=== PATIENT | male | born 1960 | race Caucasian/White ===

== ENCOUNTER → 2019-10-14 | Outpatient (CLI) | payer OTHER ==
[2019-10-14 08:37] LABS: CREATININE 1.2 mg/dL (0.7-1.3)
== END ==
LOC: RAD 07:10
DX: M47.26 Other spondylosis with radiculopathy, lumbar region (principal); M47.818 Spondylosis without myelopathy or radiculopathy, sacral and sacrococcygeal region; M48.07 Spinal stenosis, lumbosacral region

== ENCOUNTER 2019-11-19 06:09 | Inpatient (IN) | payer OTHER ==
--- NOTE | 2019-11-16 11:12 | EKG ---
[facility] [place] [address] ELECTROCARDIOGRAM REPORT Name: LOGAN HERNÁNDEZ Room #: PRE IN M.R.#: [id number] Admission: Attend Phys: Ovidio Dorantes MD Discharge: Date of : 58 Report #: [id number] THIS REPORT FOR: cc: STEVEN SPEAR Physician not on staff Stevenson Llanes MD [facility] ~ THIS REPORT FOR: //name// [facility] Test Date: 2019-11-16 Test Time: 10:54:32 Pat Name: LOGAN HERNÁNDEZ Department: Room: Gender: M Water Quality Specialist: ZAYRA : 1960 Requested By: Ovidio Dorantes Order Number: [id number] : Stevenson Llanes Measurements Intervals [place] Rate: 60 P: 53 IA: 162 QRS: 10 QRSD: 106 T: 64 QT: 440 QTc: 440 Interpretive Statements Sinus rhythm No previous ECG available for comparison Electronically Signed On 11-16-2019 11:12:29 CDT by Stevenson Llanes [email or web address] <ELECTRONICALLY SIGNED> By: Stevenson Llanes MD, FACC 11/16/19 1112 1054 1054 Stevenson Llanes MD, FACC /EPI
[2019-11-16 11:50] LABS: ABSOLUTE NEUTROPHILS 4.5 thou/uL (1.4-8.2); BASOPHILS 0.4 % (0.0-2.0); HEMATOCRIT 43.9 % (42.0-52.0); HEMOGLOBIN 14.8 gm/dL (14.0-18.0); LYMPHOCYTES 30.7 % (24.0-44.0); MCH 30.7 pg (26.0-34.0); MCHC 33.7 g/dL (28.0-37.0); MCV 91.2 fL (80.0-100.0); MONOCYTES 8.9 % (1.0-8.0); PLATELET COUNT 151 thou/uL (150-400); RBC 4.81 mil/uL (4.50-6.00); RDW 14.2 % (10.5-14.5); WBC 7.9 thou/uL (4.0-11.0)
[2019-11-16 11:52] LABS: URINE BILIRUBIN NEGATIVE (Negative); URINE BLOOD 1+ (Negative); URINE CLARITY CLEAR; URINE COLOR YELLOW; URINE GLUCOSE-RANDOM* 3+ (Negative); URINE KETONES NEGATIVE (Negative); URINE LEUKOCYTES-REFLEX NEGATIVE (Negative); URINE NITRITE-REFLEX NEGATIVE (Negative); URINE PROTEIN (DIPSTICK) NEGATIVE (Negative); URINE UROBILINOGEN 0.2 E.U./dl (0.2-1.0)
[2019-11-16 12:08] LABS: APTT 31.3 Seconds (24.5-32.8); PROTIME 10.5 Seconds (9.3-11.4)
[2019-11-16 12:15] LABS: ALBUMIN 3.8 g/dL (3.4-5.0); CALCIUM 8.8 mg/dL (8.5-10.1); MAGNESIUM 2.4 mg/dL (1.8-2.4); POTASSIUM 4.5 mmol/L (3.5-5.1); SQUAMOUS 0-3 Few /LPF (0-3); TOTAL BILIRUBIN 0.3 mg/dL (0.2-1.0); TOTAL PROTEIN 7.1 g/dL (6.4-8.2)
[2019-11-16 12:16] LABS: BACTERIA-REFLEX None Seen /HPF (None Seen); CASTS None Seen /LPF (None Seen); CRYSTALS None Seen /LPF (None Seen); URINE RBC 0-2 Rare /HPF (0-2); URINE WBC-REFLEX None Seen /HPF (0-5)
[2019-11-17 02:06] LABS: GLYCOHEMOGLOBIN (HGB A1C) 8.2 % (4.8-5.6)
[~2019-11-19] VITALS: Ht 180.3 cm; Wt 124.7 kg
--- NOTE | ~2019-11-19 | HC ---
[facility] [place] [address] CONSULTATION Name: DC BRAGGIN Room #: 443-P [facility] IN M.R.#: [id number] Admission: 11/19/19 Attend Phys: Ovidio Dorantes MD Discharge: 11/23/19 Date of : 58 Report #: [id number] THIS REPORT FOR: cc: STEVEN SPEAR Physician not on staff Gamaliel Acosta MD ~ CC: Ovidio Bragg Physician staff DATE OF SERVICE: 11/23/2019 RENAL CONSULTATION HISTORY OF PRESENT ILLNESS: The patient is a 59-year-old white male who was admitted to [facility] on 11/19/2019 with a history of lumbar pain with radiculopathy, central and neural foraminal stenosis, herniated disk, spondylolisthesis, history of a previous laminectomy at L5-S1. The patient underwent an extensive lumbar fusion on 11/19/[address] Dorantes. He has had some issues with nausea and vomiting. He does have diabetes mellitus and has an insulin pump with the hospitalist service closely involved. He also was noted to have uncontrolled hypertension. We are seeing him in rehabilitation medicine consultation. PAST MEDICAL HISTORY: Prior medical history includes prior lumbar diskectomy with laminectomy, history of anterior cervical fusion, bilateral rotator cuff repair, laparoscopic cholecystectomy, lumbar diskectomy, bilateral carpal tunnel releases, insulin-dependent diabetes mellitus with continuous pump, colon resection with cancer and past kidney stones. MEDICATIONS: Please see the full medication listing. ALLERGIES: As noted including PENICILLIN AND SULFA. SOCIAL HISTORY: He lives alone, but the plan is to go to his mother and sister's house where there is a ramp. He needs to be supervision/independent prior to returning back to the home setting. REVIEW OF SYSTEMS: No current complaints of chest pain, shortness of breath or abdominal discomfort. PHYSICAL EXAMINATION: GENERAL: This is a 59-year-old overweight white male in no obvious distress. VITAL SIGNS: Last recorded temperature 37, pulse 69, respirations 20, blood pressure 150/89. He is sleepy, but easily arouses. [facility] [address] [place] [address] CONSULTATION Name: LOGAN BRAGG Room #: 443-P [facility] IN M.R.#: [id number] Admission: 11/19/19 Attend Phys: Ovidio Dorantes MD Discharge: 11/23/19 Date of : 58 Report #: [id number] HEENT: Facies appeared symmetric. He does have exogenous obesity. He is a reasonable historian. EXTREMITIES: Functional range of motion of the upper extremity, strength is grade 4 to 4-/5. DTRs are trace to 1. Lower extremities, no focal calf swelling. Strength is probably grade 4-/5. DTRs are trace to 1. He does need mod assist coming to stand. Once up, he is able to ambulate a short distance min assist with a front-wheeled walker. ASSESSMENT: This is a 59-year-old white male with the following problem list: 1. Lumbar pain with radiculopathy, central and neural foraminal stenosis, herniated disk, spondylolisthesis, history of previous laminectomy, now status post fusion on 11/19/2019. 2. Initial nausea and vomiting that appears to be improving. 3. Diabetes mellitus with insulin pump. 4. Hypertension, which was noted to be uncontrolled. 5. Sleep apnea and noted to be CPAP intolerant. 6. History of colon cancer. 7. History of kidney stone. PLAN: The patient does have functional deficits with mobility and ADLs. He is mod assist coming to stand. Bathing is mod assist. Needs min assist to try to ambulate short distances with a walker as well as for upper body dressing. He will need to be supervision in order to return back to the home setting. He also has significant multiple medical comorbidities including his diabetes with insulin pump, hypertension, which has been uncontrolled, prior nausea and vomiting as well as pain management. He has significant functional mobility and ADL deficits and insurance precertification issues are to be checked regarding a short acute in-hospital inpatient rehabilitation stay. Both the goal would be to further maximize his medical issues as noted above and to further improve his strength and endurance, so that he can return back to the home setting after a short acute in-hospital inpatient rehabilitation stay. Thank you for asking us to assist in this patient's care. By: 1221 2330 Gamaliel Acosta MD /PMT
[~2019-11-19 06:09] MED LIST: APPLE CIDER VI500 MG PO; CARTRIDGE STAM1 EACH SUBQ; FISH OIL 1,0001 EAC9 PO; INVOKANA300 MG PO; PROBIOTIC1 EAC7 PO; TERBINAFINE HC250 MG PO; TOPROL XL25 MG PO; VITAMIN B-121000 MC2 SUBLING; VITAMIN C500 M1 PO; VITAMIN D310 MC1 PO; VITAMIN D31250 MCG PO
[2019-11-19 07:07] VITALS: BP 179/93
[2019-11-19 16:25] VITALS: BP 162/95
--- NOTE | 2019-11-19 18:19 | NUR ---
PATIENT ADMITTED FROM WITH LUMBAR LAMINECTOMY WITH FUSION. PATIENT HAS THIGH HIGH SIDRA HOSE, SCD'S, HEMOVAC IN PLACE. KING MAKER STARTED IN OR. PATIENT ARRIVED ON THE UNIT, NO ON SIGNED FOR RECEVING THE PATIENT, TARYN/NURSE WELDING EQUIPMENT REPAIRER SUPERVISOR AWARE.
--- NOTE | 2019-11-19 18:33 | NUR ---
PT IS AOX4, VSS, NO C/O PAIN AT THIS TIME. PT HAS SURVEYOR HELPER PUMP FOR PAIN WHEN NEEDED. PT HAS GOOD APPETITE. TAKES MEDS WHOLE, FALL PRECAUTIONS IN PLACE. NURSE EDUCATED PT TO CALL NURSE IF NEEDED. WILL CONTINUE TO MONITOR.
--- NOTE | 2019-11-19 18:58 | NUR ---
PATIENT ADMITTED FROM ER WITH LUMBAR LAMINECTOMY WITH FUSION. PATIENT AROUSABLE ON EYE GLASS FRAME POLISHER PUMP. PAIN LEVEL 2/10. EYE GLASS FRAME POLISHER VERIFIED WITH DAVID/ERUM. PATIENT HAS HEMOVAC.ADMISSION COMPLETED. REPORT GIVEN TO DAVID/ERUM.
[2019-11-19 19:20] VITALS: BP 169/89
--- NOTE | 2019-11-20 03:29 | NUR ---
ASSESSED CARE OF PT @1900. PT ON A PIPE JOINTS SUPERVISOR PUIMP POST SX. IV INTACT WITH IVF. PT ON A CAPNEA MONITOR. FOLLEY AND HEMOVAC INTACT. EVENING MEDS GIVEN. PT C/O NAUSEA X2 EMESIS NOTED NO RLIEF FROM ZOFRAN COMPAZINE GIVEN. SCD'S, SIDRA HOSE INTACT. FALL PREC IN PLACE AND WILL CONT TO MONITOR
[2019-11-20 03:44] VITALS: BP 186/96
[2019-11-20 05:52] LABS: BASOPHILS 0.3 % (0.0-2.0); HEMATOCRIT 45.2 % (42.0-52.0); HEMOGLOBIN 14.3 gm/dL (14.0-18.0); LYMPHOCYTES 15.1 % (24.0-44.0); MCH 29.5 pg (26.0-34.0); MCHC 31.6 g/dL (28.0-37.0); MCV 93.4 fL (80.0-100.0); PLATELET COUNT 139 thou/uL (150-400); POLYS 74.6 % (36.0-66.0); RBC 4.84 mil/uL (4.50-6.00); WBC 12.1 thou/uL (4.0-11.0)
[2019-11-20 06:05] LABS: CALCIUM 8.4 mg/dL (8.5-10.1); CREATININE 1.2 mg/dL (0.7-1.3); POTASSIUM 4.2 mmol/L (3.5-5.1)
[2019-11-20 06:15] VITALS: BP 161/88
[2019-11-20 08:00] VITALS: BP 165/92
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
--- NOTE | 2019-11-20 09:40 | NUR ---
cm completed initial assessment to discuss d/c planning. pt sitting up in recliner upon arrival. pt a&ox4. pt lives at home alone, but plans to stay at mother's home at d/c, as mother has a ramp and a walker for pt to use and his sister live w/mother and will be able to assist him w/cares. pt is usu. active and independent w/adls. pt is retired. drives a vehicle. pt has no hx w/ snf or hh; however, pt stated he is open to home health if it is needed. cm to cont to follow.
[2019-11-20 15:50] VITALS: BP 178/67
--- NOTE | 2019-11-20 19:52 | NUR ---
PT CARE ASSUMED AT 0700. A&Ox4. PT HAD 2 EPISODES OF N/V. SCOLPAMINE PATCH APPLIED, IV ZOFRAN GIVEN. N/V RESOLVED. AGENTS' RECORDS CLERK PUMP DC'D. ON ORAL PAIN MEDICATION NOW WHICH HE HAS HAD GOOD PAIN CONTROL. IV PATENT WITH NO REDNESS OR EDEMA. ACHS WITH INTERNAL INSULIN PUMP WHICH PT CONTROLS HIMSELF. PT ON BOARD. FALL PROTOCOL IN PLACE. SCD'S IN PLACE. CALL LIGHT IN REACH. WILL CONTINUE TO MONITOR. SHALINI KANG'D TODAY. NO OUTPUT AT THE END OF SHIFT STILL HAS UNTIL 2044 TO URINATE BEFORE BLADDER SCANNING. HEMOVAC IN PLACE.
[2019-11-20 20:32] VITALS: BP 189/81
[2019-11-20 22:32] VITALS: BP 189/81
[2019-11-21 04:57] VITALS: BP 197/90
[2019-11-21 06:26] LABS: BASOPHILS 0.2 % (0.0-2.0); HEMATOCRIT 42.1 % (42.0-52.0); HEMOGLOBIN 13.9 gm/dL (14.0-18.0); MCH 30.4 pg (26.0-34.0); MCHC 33.1 g/dL (28.0-37.0); MCV 91.8 fL (80.0-100.0); MONOCYTES 10.1 % (1.0-8.0); PLATELET COUNT 151 thou/uL (150-400); POLYS 78.7 % (36.0-66.0); RBC 4.59 mil/uL (4.50-6.00); RDW 15.1 % (10.5-14.5)
[2019-11-21 06:32] LABS: CALCIUM 8.7 mg/dL (8.5-10.1); MAGNESIUM 2.7 mg/dL (1.8-2.4); POTASSIUM 3.9 mmol/L (3.5-5.1)
--- NOTE | 2019-11-21 06:38 | NUR ---
PT AOX4, DROWSY UPON ASSESSMENT. PT DENIES PAIN AND SOB. PT HAS PRN PO NORCO Q4HR AVAILABLE. PT REMAINS ON 2L O2 VIA NC. PT HAVING DIFFICULTY TOLERATING PO INTAKE OF FLUIDS AND REGULAR DIET, PT WITH NAUSEA AND VOMITTING. PT WITH BROWN LIQUID EMESIS. PT RECEIVING PRN IV ZOFRAN Q6HR, PRN IV COMPAZINE Q6HR, PRN IV REGLAN Q6HR, AND PRN PO PHENERGAN Q6HR. PT RESTING IN BED THROUGHOUT SHIFT, FREQUENT REPOSITIONING ENCOURAGED. PT NOTED TO SHIFT INDEPENDENTLY WHILE IN BED. PT CONTINUES TO HAVE NAUSEA WITH VOMITTING. DUE TO RECENT PROCEDURE, ONCALL BOILER SHOP MECHANIC NOTIFIED OF CONCERN, ADVISED NOT TO GIVE PO MEDICATIONS IF PT UNABLE TO TOLERATE PO INTAKE, KUB ANTICIPATED. PT ENCOURAGED TO NOTIFY STAFF FOR ALL NEEDS, CALL LIGHT WITHIN REACH, BED ALARM ON, BED IN LOWEST POSITION, FREQUENT MONITORING WILL CONTINUE.
[2019-11-21 08:00] VITALS: BP 180/109
--- NOTE | 2019-11-21 11:00 | NUR ---
discussed during prime time, pt voice to nurse he wants to go to acute rehab here, need order for 5n consult and will cont following as needed for dc needs.
[2019-11-21 15:56] VITALS: BP 130/70
--- NOTE | 2019-11-21 19:07 | NUR ---
PT CARE ASSUMED AT 0700. A&Ox4. PT ON 2L FOR COMFORT. IV PATENT WITH NO REDNESS OR EDEMA, SALINE LOCKED. MINIMAL NAUSEA IN THE AM AND PT CHOSE TO HAVE A POPSICAL INSTEAD OF BREAKFAST AND TOLERATED THIS WELL. WITH NO EMESIS NOTED. NAUSEA RESOLVED. ACHS WITH INTERNAL INSULIN PUMP SELF ADMINISTRATION. UP TO THE RECLINER MOST OF THE DAY. UP TO THE BATHROOM WITH TWO ASSIST FROM LOW POSITIONS AND WALKER. REFERAL ENTERED FOR ACUTE REHAB. FALL PROTOCOL IN PLACE. CALL LIGHT IN REACH. WILL CONTINUE TO MONITOR.
[2019-11-21 20:08] VITALS: BP 151/80
--- NOTE | 2019-11-22 03:27 | NUR ---
PT CARE ASSUMED WITH PT IN BED AT 1905 SLEEPING.PT A/O X4 AND SOMETIMES CONFUSE.PT USES A URINAL AND BEDPAN FOR ELIMINATION.PT DROWSY.PT IS ACCUCHECK ACHS WITH INTERNAL INSULIN PUMP.SURGICAL SITE I/C/D.PT HAS HYDROCODONE FOR PAIN MANAGEMENT.WILL CONTINUE TO MONITOR
[2019-11-22 05:30] VITALS: BP 175/85
[2019-11-22 06:08] LABS: ABSOLUTE NEUTROPHILS 10.2 thou/uL (1.4-8.2); BASOPHILS 0.4 % (0.0-2.0); EOSINOPHILS 0.8 % (0.0-3.0); HEMATOCRIT 38.3 % (42.0-52.0); HEMOGLOBIN 12.4 gm/dL (14.0-18.0); LYMPHOCYTES 14.2 % (24.0-44.0); MCH 29.6 pg (26.0-34.0); MCHC 32.4 g/dL (28.0-37.0); MCV 91.4 fL (80.0-100.0); MONOCYTES 10.6 % (1.0-8.0); PLATELET COUNT 128 thou/uL (150-400); RBC 4.19 mil/uL (4.50-6.00); WBC 13.8 thou/uL (4.0-11.0)
[2019-11-22 06:20] LABS: CALCIUM 8.2 mg/dL (8.5-10.1); CREATININE 1.1 mg/dL (0.7-1.3); POTASSIUM 4.1 mmol/L (3.5-5.1)
[2019-11-22 07:32] VITALS: BP 180/77
--- NOTE | 2019-11-22 10:45 | NUR ---
discussed during prime time, pt still wants to go to rehab rt doesnt feel ready to go home. new order as of 5n consult. will cont following as needed for dc needs.
[2019-11-22 16:12] VITALS: BP 131/63
--- NOTE | 2019-11-22 18:37 | NUR ---
PT CARE ASSUMED AT 0700. A&Ox4. PT UP IN THE RECLINER MOST OF THE DAY. ACHS WITH PT ADMINISTERING HIS OWN INSULIN PER INTERNAL INSULINE PUMP. PER DR. FLORENCE CASTRO CONSULT CALLED WITH PT HAVING BS OVER 200 WITH SELF ADMINISTRATION. AWAITING ACUTE REHAB EVALUATION AND INSURANCE APPROVAL. HYDRALIZINE IF SYSTOLIC OVER 160. IV PATENT WITH NO REDNESS OR EDEMA, SALINE LOCKED. NO PAIN VOICED FROM PT THE ENTIRE SHIFT. PER SON AND PT WOULD LIKE COMMUNICATION TO BE ADRESSED TO SON. PER SON PT IS MORE DROWSY THEN USUAL. MD INFORMED. WILL CONTINUE TO MONITOR.
[2019-11-22 19:52] VITALS: BP 159/71
[2019-11-23] VITALS (10 sets, daily range): BP systolic 150; BP diastolic 58–69
--- NOTE | 2019-11-23 02:41 | NUR ---
ASSUMED PT CARE AROUND 1900. PT HAS HAD PERIODS OF FORGETFULNESS AND CONFUSION DURING THE NIGHT. C/O LOW BACK PAIN WITH MOVEMENT AND ACTIVITY. HE DID NOT WANT ANY PAIN MEDICATION. ADEQUATE URINE OUTPUT VIA URINAL. PT HAS BEEN SITTING IN THE CHAIR SINCE AROUND MIDNIGHT. TOLERATING WELL. PT STATED HE SEES ANTS CRAWLING ON THE WINDOW. HE APPEARS TO BE HAVING VISUAL HALLUCINATIONS. REASSURANCE PROVIDED. FALL PRECAUTIONS IN PLACE. PROGRESSING SLOWLY TOWARD POC GOALS. WILL CONTINUE TO MONITOR FURTHER.
[2019-11-23 05:42] LABS: ABSOLUTE NEUTROPHILS 7.5 thou/uL (1.4-8.2); BASOPHILS 0.3 % (0.0-2.0); EOSINOPHILS 2.4 % (0.0-3.0); HEMATOCRIT 39.6 % (42.0-52.0); HEMOGLOBIN 12.8 gm/dL (14.0-18.0); LYMPHOCYTES 19.6 % (24.0-44.0); MCH 29.7 pg (26.0-34.0); MCHC 32.4 g/dL (28.0-37.0); MCV 91.7 fL (80.0-100.0); MONOCYTES 11.1 % (1.0-8.0); PLATELET COUNT 154 thou/uL (150-400); POLYS 66.6 % (36.0-66.0); RBC 4.32 mil/uL (4.50-6.00); RDW 15.1 % (10.5-14.5); WBC 11.3 thou/uL (4.0-11.0)
[2019-11-23 05:51] LABS: CALCIUM 8.2 mg/dL (8.5-10.1); CREATININE 1.1 mg/dL (0.7-1.3); POTASSIUM 3.9 mmol/L (3.5-5.1)
--- NOTE | 2019-11-23 14:59 | NUR ---
DIETER reviewed chart and spoke with nursing and attending physician. Pt is progressing towards goals for discharge. 5N consulted over the weekend. SW discussed case with 5N vocational rehabilitation counselor. Pt would need insurance authorization for admission to . DIETER met with pt at bedside twice today to discuss discharge plan: post-acute v. home with HH. Pt states he feels strong enough to return home with HH. Pt states he has used [facility] in the past and would like to use them again. Pt's mother and family will be able to assist him at home. Pt will need roller walker. Pt states his family will be able to provide transportation home. SW notified [facility] liaison of need for walker. Script to be obtained. DIETER updated attending physician. Pt is medically stable for discharge home today with services. network planner faxed info to [facility]. Awaiting final discharge orders/summary at this time. DIETER is following to finalize discharge.
[2019-11-23] MEDS ORDERED: HYDROCODON-ACE1 EAC7 PO (15:37)
[2019-11-23] MEDS ORDERED: ROBAXIN 750 MG750 MG PO (15:37)
--- NOTE | 2019-11-23 17:02 | NUR ---
FAXED REFERRAL TO [facility] THEY DENIED REFERRAL OUT OF NETWORK WITH INSURANCE. FAXED REFERRAL TO [facility] SPOKE WITH ANKITA IN INTAKE THEY ARE NOT ABLE TO ACCEPT THEY ARE AT CAPACITY WITH THERAPY IN PT'S AREA OF RESIDENCE. FAXED REFERRAL TO [facility] SPOKE WITH INTAKE THEY SERVICE THAT AREA AND ACCEPT [employer] INS. THEY WILL REVIEW REFERRAL I INCLUDED DC ORDERS/SUMMARY WITH REFERRAL. WILL F/U WITH THEM IN THE AM.
--- NOTE | 2019-11-24 08:59 | NUR ---
SPOKE WITH LYNNE FROM INTAKE WITH [facility] THEY RECEIVED REFERRAL AND WILL ACCEPT THEY WILL NOTIFY PT TIME OF VISITS.
--- NOTE | 2019-11-24 16:03 | NUR ---
WAS NOTIFIED BY INTAKE AT [facility] THAT PT IS NOT STAYING AT HIS RESIDENCE HE IS STAYING WITH HIS MOTHER IN [place], [place] THEY DO NOT SERVICE THAT AREA. FAXED REFERRAL TO [facility] SPOKE WITH CHALO IN INTAKE SHE RECEIVED REFERRAL AND CAN ACCEPT FAXED DC ORDERS/SUMMARY RECEIVED CONFIRMATION. I SPOKE WITH PT TO NOTIFY HIM OF CHANGE IN HH AGENCIES AND GAVE HIM THE NUMBER TO [facility] THEY WILL CALL PT TO ARRANGE VISITS.
== END 2019-11-23 18:28 | disposition home health service (06) | DRG 453 ==
LOC: TBA 06:09 → 4S 06:09 → PRE 08:01 → 4S 15:28 → PRE 15:59 → 4S 11-23 18:28
PROVIDERS: Nurse Practitioner
DX: M47.26 Other spondylosis with radiculopathy, lumbar region (principal); J96.01 Acute respiratory failure with hypoxia; M51.06 Intervertebral disc disorders with myelopathy, lumbar region; M48.061 Spinal stenosis, lumbar region without neurogenic claudication; E11.9 Type 2 diabetes mellitus without complications; I10 Essential (primary) hypertension; E66.01 Morbid (severe) obesity due to excess calories; G47.33 Obstructive sleep apnea (adult) (pediatric); M51.16 Intervertebral disc disorders with radiculopathy, lumbar region; Z98.1 Arthrodesis status; Z88.0 Allergy status to penicillin; Z88.2 Allergy status to sulfonamides; Z88.8 Allergy status to other drugs, medicaments and biological substances; Z91.09 Other allergy status, other than to drugs and biological substances; Z79.899 Other long term (current) drug therapy; Z90.49 Acquired absence of other specified parts of digestive tract; Z85.038 Personal history of other malignant neoplasm of large intestine; Z20.828 Contact with and (suspected) exposure to other viral communicable diseases
CPT/HCPCS: 10102; 50010; 50101; 50402; 50850; 51412; 51878; 56524; 56529; 56805; 58247; 58248; 58251; 58259; 5827; 58283; 58299; 62110; 62900; 70005

== ENCOUNTER → 2019-11-27 | Outpatient (CLI) | payer OTHER ==
[~2019-11-27] MED LIST changes: +CINNAMON500 MG PO; +CLINDAMYCIN HC150 MG PO; +CLONIDINE HCL0.1 M1 PO; +DIPHENHYDRAMINE25 M3 PO; +FLOMAX0.4 MG PO; +FLONASE 0.05%50 MCG NARES; +GABAPENTIN600 M1 PO; +GLIPIZIDE 10 MG10 MG PO; +HYDROCHLOROTH12.5 M1 PO; +HYDROCODON-ACE1 EAC7 PO; +IBU800 MG PO; +LIPITOR 20 MG T20 M1 PO; +PRAVACHOL 20 MG20 M1 PO; +ROBAXIN 750 MG750 MG PO; +ZESTRIL30 MG PO
== END ==
LOC: RAD 08:44
DX: M43.27 Fusion of spine, lumbosacral region (principal); Z98.890 Other specified postprocedural states

== ENCOUNTER 2019-12-02 13:40 | Inpatient (IN) | payer OTHER ==
[~2019-12-02] VITALS: Ht 180.3 cm; Wt 137.0 kg
[~2019-12-02 13:40] MED LIST changes: -CINNAMON500 MG PO; -CLINDAMYCIN HC150 MG PO; -CLONIDINE HCL0.1 M1 PO; -DIPHENHYDRAMINE25 M3 PO; -FLOMAX0.4 MG PO; -FLONASE 0.05%50 MCG NARES; -GABAPENTIN600 M1 PO; -GLIPIZIDE 10 MG10 MG PO; -HYDROCHLOROTH12.5 M1 PO; -IBU800 MG PO; -LIPITOR 20 MG T20 M1 PO; -PRAVACHOL 20 MG20 M1 PO; -ZESTRIL30 MG PO
[2019-12-02 13:43] VITALS: BP 182/79
[2019-12-02 14:35] LABS: URINE BILIRUBIN NEGATIVE (Negative); URINE BLOOD NEGATIVE (Negative); URINE CLARITY CLEAR; URINE COLOR YELLOW; URINE GLUCOSE-RANDOM* 3+ (Negative); URINE KETONES NEGATIVE (Negative); URINE LEUKOCYTES-REFLEX NEGATIVE (Negative); URINE NITRITE-REFLEX NEGATIVE (Negative); URINE PROTEIN (DIPSTICK) NEGATIVE (Negative); URINE SPECIFIC GRAVITY 1.015 (1.005-1.035); URINE UROBILINOGEN 0.2 E.U./dl (0.2-1.0)
[2019-12-02 15:04] LABS: HEMATOCRIT 32.3 % (42.0-52.0); HEMOGLOBIN 10.7 gm/dL (14.0-18.0); MCV 90.7 fL (80.0-100.0); PLATELET COUNT 276 thou/uL (150-400); RBC 3.56 mil/uL (4.50-6.00); WBC 8.8 thou/uL (4.0-11.0)
[2019-12-02 15:13] LABS: CALCIUM 8.6 mg/dL (8.5-10.1); CREATININE 1.1 mg/dL (0.7-1.3)
[2019-12-02 15:19] LABS: ALBUMIN 2.6 g/dL (3.4-5.0); TOTAL BILIRUBIN 0.3 mg/dL (0.2-1.0)
[2019-12-02 15:27] LABS: METAMYELOCYTES 1 %
[2019-12-02 15:28] LABS: ABSOLUTE NEUTROPHILS 5.8 thou/uL (1.4-8.2); MYELOCYTES 1 %
[2019-12-02] MEDS ORDERED: CINNAMON500 MG PO (16:31)
[2019-12-02] MEDS ORDERED: LIPITOR 20 MG T20 M1 PO (16:31)
[2019-12-02] MEDS ORDERED: CLINDAMYCIN HC150 MG PO (16:32)
[2019-12-02] MEDS ORDERED: CLONIDINE HCL0.1 M1 PO (16:32)
[2019-12-02] MEDS ORDERED: FLONASE 0.05%50 MCG NARES (16:33)
[2019-12-02] MEDS ORDERED: DIPHENHYDRAMINE25 M3 PO (16:33)
[2019-12-02] MEDS ORDERED: GLIPIZIDE 10 MG10 MG PO (16:34)
[2019-12-02] MEDS ORDERED: GABAPENTIN600 M1 PO (16:34)
[2019-12-02] MEDS ORDERED: IBU800 MG PO (16:35)
[2019-12-02] MEDS ORDERED: HYDROCHLOROTH12.5 M1 PO (16:35)
[2019-12-02] MEDS ORDERED: ZESTRIL30 MG PO (16:37)
[2019-12-02] MEDS ORDERED: PRAVACHOL 20 MG20 M1 PO (16:39)
[2019-12-02] MEDS ORDERED: FLOMAX0.4 MG PO (16:40)
[2019-12-02 16:49] VITALS: BP 133/102
--- NOTE | 2019-12-02 19:13 | NUR ---
ATTEMPTED TO CALL REPORT AT 625PM. NURSE STATED HE WOULD CALL BACK IN 5 MIN. NURSES NOW IN CHANGE OF SHIFT REPORT.
[2019-12-02 19:25] VITALS: BP 178/74
[2019-12-02 20:05] VITALS: BP 164/74
--- NOTE | 2019-12-02 22:00 | NUR ---
PT ARRIVED TO UNIT VIA GURNEY, PT UNABLE TO MOVE FROM GURNEY TO BED DUE TO PAIN, PT ASSESSED AND DATA BASED COMPLETED. DRESSING NOTED TO LUMBAR AREA , DRY AND INTACT. REGINA INTACT, NO REDNESS OR SWELLING NOTED AT SURGICAL SITE. PAIN MEDICATION GIVEN. PT REQUESTED HS SNACK. PT RESTED WELL UNTIL 0300 AM WHEN PT C/O 10/10 PAIN AND SPASM TO BACK . CHIEF COMPRESSOR STATION ENGINEER Layla IZQUIERDO NOTIFED, PT ASSESSED AND VALIUM ORDERED X1 . DRESSING CHANGES DUE DRAINAGE NOTED . PT RESTED WELL AFTER MEDICATION GIVEN WILL CONTINUE WITH CURRENT PLAN OF CARE.
[2019-12-03 03:00] VITALS: BP 151/84
[2019-12-03 05:50] LABS: HEMATOCRIT 34.1 % (42.0-52.0); HEMOGLOBIN 11.2 gm/dL (14.0-18.0); MCH 29.6 pg (26.0-34.0); MCHC 32.8 g/dL (28.0-37.0); MCV 90.2 fL (80.0-100.0); RBC 3.78 mil/uL (4.50-6.00); RDW 14.4 % (10.5-14.5); WBC 9.5 thou/uL (4.0-11.0)
[2019-12-03 06:06] LABS: CALCIUM 8.6 mg/dL (8.5-10.1); CREATININE 1.1 mg/dL (0.7-1.3); POTASSIUM 3.9 mmol/L (3.5-5.1)
[2019-12-03 07:45] VITALS: BP 165/70
[2019-12-03 16:14] VITALS: BP 166/68
--- NOTE | 2019-12-03 16:38 | NUR ---
P.T. EVAL DEFERRED AT THIS TIME. REQUEST NEW P.T. ORDERS S/P SURGICAL INTERVENTIONS INDICATION ANY POST OPERATIVE THERAPY RESTRICTION.
[2019-12-03 17:00] VITALS: BP 166/68
--- NOTE | 2019-12-03 18:04 | NUR ---
ASSUMED PT AT 0715. PT IS A&OX4, VSS, CONTINENT TO BOWEL, AND BLADDER. PT VISIT MRI, IN A GREAT AMOUNT OF PAIN, AND HAD A COVID TEST DONE FOR PRECEDURE 12/04/2019. PT IS NPO AT MIDNIGHT. WILL CONTINUE TO MONITOR.
[2019-12-03 19:18] VITALS: BP 125/63
--- NOTE | 2019-12-03 19:46 | NUR ---
I AGREE WITH NURSING ASSESSMENT AND NURSING NOTE DONE BY ARIEL/ALAN.
--- NOTE | 2019-12-04 02:35 | NUR ---
PT CARE ASSUMED WITH PT IN BED WATCHING TV.PT IS A/O X4.PT IS BEDREST.DRESSING ON BACK CHANGED YESTERDAY .PT IS MAX ASSIST .PT USES URINAL AND BEDPAN.IV ACCESS ON LT FA WITH NS AT 75ML/HR.PT IS ACCUCHECK ACHS.PT NPO FROM MIDNIGHT FOR LUMBAR WOUND EXPLORATION THIS AM.PT IS ON ROOM AIR.PAIN MANAGED WITH HYDROCODONE AND MORPHINE.WILL CONTINUE TO MONITOR
[2019-12-04 04:01] VITALS: BP 167/85
[2019-12-04 08:00] VITALS: BP 172/88
--- NOTE | 2019-12-04 12:18 | NUR ---
PATIENT GOING TO SURGERY AT THIS TIME. URINATED AND IV SALINE LOCKED. PT'S COVID 19 NEGATIVE.
--- NOTE | 2019-12-04 14:55 | NUR ---
chart review, cm tried to visit with vandana, unable to rt out of room for procedure. he was here is 11/2019 and dc to his mom and sister house, it is handicap accessible. he dc with [facility]. he went and stay with his mom and sister they have handicap assessable home. he was independent prior to hospital in 11/2019. cm spoke with son jacqueline who had question for bedside nurse. had [facility] at last dc. no snf in past. drives and manage own medication dcp home with [facility].
[2019-12-04 15:41] VITALS: BP 154/86
--- NOTE | 2019-12-04 16:11 | NUR ---
PATIENT RETURNED TO ROOM AT 1541 FROM POST OP. REPORT WAS GIVEN TO THIS NURSE FROM POST OP. PT IS ALERT XS 4. FLUIDS INFUSING ORDERED. V.S 98.0 20 66 154/86 O2 SAT =96 % RA. HAD CONSULT FOR ID AND DR GUERRERO IS HERE TO SEE PATIENT. PT IS SLEEPY STATES NO PAIN OR RESP DISTRESS. HAS DRESSING INTACT TO BACK AND HEMOVAC XS 2. PT SLEEPING .
[2019-12-04 19:40] VITALS: BP 149/78
--- NOTE | 2019-12-04 19:45 | NUR ---
PT RESTING IN BED FENTANYL MAIL CARRIER AND CLERK PUMP WITHIN REACH. PT IS COMFORTABLE HAS HEMOVAC XS 2 TOP ONE WITH 50 CC AND BOTTOM ONE IS EMPTY. PT'S SON BROUGHT HIS MEDIA REPORTER AND HIS INSULIN TO FILL INSULIN PUMP. NIGHT NURSE TO TAKE INSULIN TO PHARMACY.
[2019-12-05 04:01] VITALS: BP 183/88
--- NOTE | 2019-12-05 04:40 | NUR ---
ASSUMED PT CARE AT AROUND 1915 HRS. PT ALERT AND ORIENTED. USING FENTANYL PAINTING AND COATING WORKER AND REPORTING ADEQUATE RELIEF OF PAIN. PATIENT ASKING TO USE BEDPAN X 2 BUT ONLY PASSING GAS. DRSG TO BACK IS C/D/I. HEMOVAC X [address]CAPNO AND SAT MONITOR IN PLACE. PT HAD SEVERAL BOUTS OF NAUSEA GIVEN ZOFRAN WITH MILD RELIEF. PT ALSO HAD LARGE AMOUNTS OF BOWEL MOVEMENT. ABDOMEN IS OBESE AND A LITTLE HARD BEOFRE BM, THEN NOW IS SFTER. AFEBRILE. BP STABLE. WILL D/C PAINTING AND COATING WORKER PUMP IN AM, CONTINUE FLUIDS TILL N/V IS RESOLVED. PT LOG ROLLS WELL, HE JUST REQUIRES EXTRA TIME. SCDS IN PLACE.PT HAS BEEN INCONTINENT OF BOTH BOWEL AND BLADDER THIS SHIFT. CALL LIGHT WITHIN REACH. FALL PREC IN PLACE.
[2019-12-05 05:55] LABS: ABSOLUTE NEUTROPHILS 10.7 thou/uL (1.4-8.2); BASOPHILS 0.5 % (0.0-2.0); HEMATOCRIT 36.7 % (42.0-52.0); HEMOGLOBIN 11.8 gm/dL (14.0-18.0); MCH 29.1 pg (26.0-34.0); MCHC 32.2 g/dL (28.0-37.0); MCV 90.1 fL (80.0-100.0); MONOCYTES 7.2 % (1.0-8.0); PLATELET COUNT 313 thou/uL (150-400); POLYS 81.3 % (36.0-66.0); RBC 4.07 mil/uL (4.50-6.00); RDW 14.5 % (10.5-14.5); WBC 13.1 thou/uL (4.0-11.0)
[2019-12-05 06:09] LABS: CALCIUM 8.6 mg/dL (8.5-10.1); POTASSIUM 4.2 mmol/L (3.5-5.1)
[2019-12-05 17:33] VITALS: BP 160/78
--- NOTE | 2019-12-05 17:41 | NUR ---
PT ASSESSED AT START OF SHIFT. LOG ROLLING WELL W/ ASSIST. UP TO BSC AND RECLINER W/ PHYSICAL THERAPY AND DID WELL. HAD SM LOOSE BM IN COMMODE. HALF BOTTLE OF MAG CITRATE THIS AFTERNOON W/ ANY RESULTS YET. INCONTNENT OF URINE AND BACK DSNG PARTLY SOILED SO NEW DSNG APPLIED. INCISION INTACT W/SUTURES. SWELLING NOTED AROUND INCISION/DRAIN AREAS. SLEEPING OFF AND ON DID NOT SLEEP WELL LAST NOC.
[2019-12-05 21:58] VITALS: BP 158/83
--- NOTE | 2019-12-06 04:55 | NUR ---
PT LYING IN BED. DENIES NEED FOR PAIN MEDICATION. ZOFRAN PROVIDING NAUSEA RELIEF. INCONTINENT. RESTING COMFORTABLY. NO NEEDS VOICED. CALL LIGHT WITHIN REACH. FREQUENT OBSERVATION.
[2019-12-06 05:35] LABS: ABSOLUTE NEUTROPHILS 7.2 thou/uL (1.4-8.2); BASOPHILS 0.4 % (0.0-2.0); EOSINOPHILS 0.4 % (0.0-3.0); HEMATOCRIT 35.9 % (42.0-52.0); HEMOGLOBIN 11.8 gm/dL (14.0-18.0); LYMPHOCYTES 18.5 % (24.0-44.0); MCH 29.6 pg (26.0-34.0); MCV 89.6 fL (80.0-100.0); MONOCYTES 7.3 % (1.0-8.0); PLATELET COUNT 322 thou/uL (150-400); POLYS 73.4 % (36.0-66.0); RBC 4.01 mil/uL (4.50-6.00); RDW 14.5 % (10.5-14.5); WBC 9.8 thou/uL (4.0-11.0)
[2019-12-06 05:55] LABS: CREATININE 0.8 mg/dL (0.7-1.3); POTASSIUM 3.8 mmol/L (3.5-5.1)
[2019-12-06 08:00] VITALS: BP 133/74
--- NOTE | 2019-12-06 13:51 | NUR ---
PT UP IN BEDSIDE CHAIR ALERT XS 4 PT IS PLEASANT AND COOPERATIVE WITH CARE. PT HAD SMALL SEMI FORMED STOOL ON BSC. 2 DRAINS TO LOWER BACK PULLED PER ORDERS. DRESSING CHANGED. BLOOD SUGARS CHECKED AND S/S ORDERED. IV FLUIDS AND IV ABTS INFUSING ORDERED.
[2019-12-06 16:00] VITALS: BP 145/75
--- NOTE | 2019-12-06 16:53 | O ---
[facility] [place] [address] OPERATIVE REPORT Name: LOGAN HERNÁNDEZ Room #: 440-P [facility] IN M.R.#: [id number] Admission: 12/02/19 Attend Phys: Prabhakar Palm MD Discharge: Date of : 58 Report #: [id number] THIS REPORT FOR: cc: ANITA - Tameka family physician/PCP ANITA - Tameka family physician/PCP Ovidio Dorantes MD ~ CC: Prabhakar Palm [facility] physician/PCP Ovidio Dorantes DATE OF SERVICE: 12/04/2019 PREOPERATIVE DIAGNOSIS: Lumbar wound infection, status post 2-level, L4-5 and L5-S1, instrumented transforaminal lumbar interbody fusion with decompression for severe spinal stenosis and spondylolisthesis. The patient's original diagnosis was wound hematoma. POSTOPERATIVE DIAGNOSIS: Lumbar wound infection, status post 2-level L4-5 and L5-S1 instrumented transforaminal lumbar interbody fusion with decompression for severe spinal stenosis and spondylolisthesis. The patient's original diagnosis was wound hematoma. The postoperative diagnosis possibly to include an early infection. SURGEON: The patient's surgeon for the I and D of lumbar wound, which was the procedure, was Dr. Penelope Dorantes. ENVIRONMENTAL STUDIES PROGRAM DIRECTOR SURGEON: Jovita Alvarez. ANESTHESIA: General via endotracheal tube. INDICATIONS: The patient has had wound drainage and increasing low back pain. Despite benign appearing wound, no constitutional symptoms and no fevers. The patient's drainage had a look compatible with resolving hematoma. The patient, however, was clinically deteriorating on the basis of severe pain, requiring full assist for transfers. The patient was brought into the hospital. MRI was read by the radiologist as postoperative hematoma with pressure on the spinal sac. Lab indices showed an elevated sed rate and elevated CRP, but no evidence of elevated white count or differential. The patient was brought to the operating room after understanding the risks of the procedure to be , DVT, pulmonary embolism, paraplegia, loss of bowel and bladder function, loss of sexual function, possibility of bleeding, bleeding requiring transfusion, transfusion attendant risks of AIDS and hepatitis, infection, instability, the need for revision, prolonged hospital stay, dural leak, spinal headache, and again, he requested we proceed. DESCRIPTION OF PROCEDURE: The patient was [place] [address] OPERATIVE REPORT Name: LOGAN HERNÁNDEZ Room #: 440-P [facility] IN M.R.#: [id number] Admission: 12/02/19 Attend Phys: Prabhakar Palm MD Discharge: Date of : 58 Report #: [id number] the prone position with all bony prominences padded appropriately. Care was taken to ensure the shoulders not abducted more than 90 degrees, the elbows flexed more than 90 degrees. There was no undue pressure on the cubital or carpal canals. The area of the anterior superior iliac spine was well padded to protect the lateral femoral cutaneous nerve. Hips and knees were well padded and there was no pressure on the dorsum of the feet. The patient's low back was defatted with alcohol, and sterilely prepped and draped, and then the incision was opened with sharp dissection. Brown drainage was expelled. This was cultured. The wound was completely opened and suctioned and removed debris from the wound. We ran 3 liters of antibiotic-containing solution through the wound. We ran 3 liters of saline pulse lavage through the wound. We did a complex debridement of this deep lumbar wound down to bone. All of the previous thrombin-soaked Gelfoam that had been placed on intraoperatively was removed off the dura. We removed material, consistent with early scar and debris off the lamina. This was done with heavy bowl curette and Leksell rongeur. We exposed the lateral fusion mass without finding any evidence of lateral infection. We exposed the deeper sites of insertion for the cages and found no evidence of purulence below the Gelfoam. We did do the 6-liter pulse lavage irrigation after and at each stage did a debridement. When complete, we placed deep drains x 2. We also closed in far-near near-far fashion and then with intervening eversion stitches for closure. The patient was physiologically stable throughout. If we have issues postoperatively or cultures are positive, we may have to convert to a wound VAC. Infectious Disease consult is pending. Hopefully, we will start broad-spectrum antibiotics pending culture results. <ELECTRONICALLY SIGNED> By: Ovidio Dorantes MD 12/06/19 1653 [id number] Ovidio Dorantes MD /nt
--- NOTE | 2019-12-06 17:00 | NUR ---
DR CARBALLO HERE TO SEE PATIENT HE STATED PATIENTS DIET COULD BE ADVANCED
[2019-12-06 20:15] VITALS: BP 177/87
--- NOTE | 2019-12-07 04:21 | NUR ---
PT TRANSFERRING TO BEDSIDE COMMODE WITH ASSIST X1 AND IS TOLERATING FAIR. IBUPROFEN ORDERED FOR HEADACHE. DENIES NEED FOR PAIN MEDICATION FOR BACK. DENIES NAUSEA. RESTING COMFORTABLY. NO NEEDS VOICED. CALL LIGHT WITHIN REACH. WILL CONTINUE TO PROVIDE FREQUENT OBSERVATION.
[2019-12-07 06:07] LABS: ABSOLUTE NEUTROPHILS 5.6 thou/uL (1.4-8.2); BASOPHILS 0.5 % (0.0-2.0); EOSINOPHILS 1.5 % (0.0-3.0); HEMATOCRIT 33.3 % (42.0-52.0); HEMOGLOBIN 10.9 gm/dL (14.0-18.0); LYMPHOCYTES 28.7 % (24.0-44.0); MCH 29.1 pg (26.0-34.0); MCHC 32.6 g/dL (28.0-37.0); MCV 89.3 fL (80.0-100.0); MONOCYTES 9.8 % (1.0-8.0); PLATELET COUNT 305 thou/uL (150-400); POLYS 59.5 % (36.0-66.0); RBC 3.73 mil/uL (4.50-6.00); RDW 14.7 % (10.5-14.5); WBC 9.4 thou/uL (4.0-11.0)
[2019-12-07 06:18] LABS: CALCIUM 7.9 mg/dL (8.5-10.1); CREATININE 0.9 mg/dL (0.7-1.3); POTASSIUM 3.3 mmol/L (3.5-5.1)
[2019-12-07 07:48] VITALS: BP 171/81
--- NOTE | 2019-12-07 14:36 | NUR ---
ON-GOING ASSESSMENT: CM REVIEWED CHART AND SPOKE WITH PATIENT AT THE BEDSIDE. PT IS NEEDING IV ANTIBIOTIC TREATMENT AND CURRENTLY ON IV VANCOMYCIN 1500MG BID PENDING CULTURES. PT IS TO HAVE PICC PLACED. CM SPOKE WITH PATIENT AND DISCUSSED SNF VS HOME WITH IV ANBX AND HOME HEALTH. PT HE FEELS BEST OPTION FOR HIM WOULD BE TO GO SNF FOR ANTIBIOTIC TREATMENTS.PT REPORTS HE WOULD LIKE TO GO TO A SNF NEAR HIS MOTHERS HOME IN [place], [place] AND REPORTS THERE IS A PLACE THERE. [facility] IS IN [place] AND PT REQUESTED A REFERRAL THERE. CM CONTACTED [facility] AND SPOKE WITH [place] IN ADMISSIONS AND ASKED IF THEY ACCEPT PTS INSURANCE AND SHE STATES THEY WOULD HAVE TO REVIEW IT. CM FAXED REFERRAL TO THEIR FAX:[phone] ALONG WITH NEGATIVE COVID TEST. AWAITING FURTHER INPUT AT THIS TIME. PATIENT REPORTS IF HE IS UNABLE TO GO TO SNF THEN HE WOULD LOOK INTO HOW MUCH IT WOULD COST HIM FOR HOME WITH IV ANBX AND HOME HEALTH. PT HAS NO PREFERENCE OF /[employer] [facility]. CM SENT REFERRAL TO [employer] [facility] FOR THEM TO CHECK PTS BENEFIT A BACKUP [employer]ASE INSURANCE DOES NOT APPROVE SNF. CM WAITING TO HEAR BACK.
--- NOTE | 2019-12-07 16:31 | NUR ---
[facility] CALLED CM AND REPORT THEY CANNOT ACCEPT PATIENT DUE TO INSURANCE. CM UPDATED PATIENT. HE REPORTS WANTING TO TRY TO GO SOMEWHERE IN [facility] THAT IS CLOSE TO HIS FAMILY WELL. PT WANTED REFERRAL TO [facility]. CM CONTACTED LALITA AT [facility] WHO REPORTS SHE BELIEVES THEY ACCEPT [employer] AND TO FAX REFERRAL TO HER AT [phone]. CM SENT REFERRAL AND AWAITING FURTHER INPUT.
--- NOTE | 2019-12-07 16:39 | NUR ---
PT ASSESSED AT START OF SHIFT. STATES HE FEELS HE'S DOING BETTER. INCISIONAL PAIN ONLY AND DECLINES PAIN MED FOR THAT. AMBULATED THE HALLS W/ THERAPY AND DOING FAIRLY WELL. SAT UP FOR COUPLE OF HOURS. EATING AND DRINKING WELL. LUMBAR DSNG CHANGED W/ MOD AMT OF SS DRAINAGE. MILDRED HERE AND LOOKED AT DSNG. SUTURES IN CLOSE APPROX. SS DRAINAGE NOTED DRAINING FROM PROXIMAL AREA OF INCISION.
[2019-12-07 21:10] VITALS: BP 166/78
--- NOTE | 2019-12-08 02:00 | NUR ---
PT ALERT AMD ORIENTED. PLEASANT. PAIN TO BACK NOT TOO BAD. GIVEN IBUPROFEN X 1 WITH RELIEF. HE USES A URINAL, HAS URGENCY AND SOMETIMES NEEDS HELP TO HOLD URINAL.C/O ABDOMEN FEELING FULL/BLOATED.BELCHING. NO C/O NAUSEA . DRSG REMAINS D/I TO BACK. SCDS TO BLE. AFEBRILE. STABLE ON ROOM AIR. COVID COMPLETED AT 2355 HRS.HE CALLS WITH NEEDS.
[2019-12-08 03:20] VITALS: BP 170/85
[2019-12-08 06:02] LABS: ABSOLUTE NEUTROPHILS 5.6 thou/uL (1.4-8.2); BASOPHILS 0.5 % (0.0-2.0); HEMATOCRIT 33.1 % (42.0-52.0); HEMOGLOBIN 10.9 gm/dL (14.0-18.0); LYMPHOCYTES 24.9 % (24.0-44.0); MCH 29.6 pg (26.0-34.0); MCV 89.7 fL (80.0-100.0); MONOCYTES 10.5 % (1.0-8.0); PLATELET COUNT 286 thou/uL (150-400); POLYS 62.1 % (36.0-66.0); RBC 3.69 mil/uL (4.50-6.00); RDW 14.3 % (10.5-14.5)
[2019-12-08 06:06] LABS: CALCIUM 8.1 mg/dL (8.5-10.1); CREATININE 0.8 mg/dL (0.7-1.3); POTASSIUM 3.4 mmol/L (3.5-5.1)
--- NOTE | 2019-12-08 11:32 | NUR ---
Patient sitting comfortably in chair, no complaints of current pain or nausea. Patient is waiting on acceptance to SNF.
--- NOTE | 2019-12-08 11:37 | NUR ---
I have reviewed the student's documentation.
--- NOTE | 2019-12-08 13:13 | NUR ---
I REVIEWED PT CHARTING AND AGREE. ERUM COLVIN. IV PATENT WITH NO REDNESS OR EDEMA, ACHS WITH SLIDING SCALE.
--- NOTE | 2019-12-08 14:51 | NUR ---
on-going assessment: CM REVIEWED CHART AND SPOKE WITH PATIENT. CM RECEIVED A CALL FROM [facility] WHO REPORTS HIS INSURANCE IS OUT OF NETWORK WITH THEM. PT REPORTS HE IS AGREEABLE FOR ANY SNF EVEN ONE CLOSE [facility] AND DOES NOT HAVE TO BE BY HIS MOTHERS HOME. PT WAS AGREEABLE WITH REFERRAL TO BE SENT TO [facility]. CM FAXED REFERRAL THEY ARE IN NETWORK WITH HIS INSURANCE. THEY ARE REVIEWING INFORMATION AND WILL SEEK AUTH IF THEY CAN ACCEPT. PT IS ALSO HAVING HIS PICC PLACED TODAY FOR IV ANBX. PT/OT RECOMMENDING [facility]. CM WILL CONTINUE TO FOLLOW.
--- NOTE | 2019-12-08 15:33 | NUR ---
VASCULAR ACCESS CONSULTED FOR PICC. PT'S LABS,MEDS,HX,ORDER AND CONSENT VERIFIED. DISCUSSED BENEFITS AND RISK OF PICC WITH PT, VERBALIZED UNDERSTANDING. TAM ALVARES WAS WUDELY PATENT WITH USG. 4FR SL POWER PICC TRIMMED TO 45CM INSERTED TO 0CM. STAT CXR ORDERED. PT TOLERATED WELL. WALLET CARD GIVEN TO PT.
--- NOTE | 2019-12-08 17:40 | NUR ---
CXR CONFIRMED PICC PLACEMENT, PICC RELEASED FOR IMMEDIATE USE PER PROTOCOL TO VINICIUS DANIELSON
[2019-12-08 18:52] VITALS: BP 189/94
[2019-12-09 01:27] VITALS: BP 169/75
--- NOTE | 2019-12-09 05:08 | NUR ---
PT WAS RESTING ON HIS BED WATCHING TV AT SHIFT CHANGE.PT C/O PAIN ON HIS BACK,MANAGED WITH MED.URINAL AT BEDSIDE WITH ADEQUATE URINE OUTPUT.PT PLEASNT AND COPERATIVE WITH CARE.PT SLEEPING ON HIS BED AT THIS TIME.CALL LIGHT WITHIN REACH.
[2019-12-09 06:25] LABS: ABSOLUTE NEUTROPHILS 4.3 thou/uL (1.4-8.2); BASOPHILS 0.5 % (0.0-2.0); EOSINOPHILS 2.3 % (0.0-3.0); HEMATOCRIT 32.6 % (42.0-52.0); HEMOGLOBIN 10.7 gm/dL (14.0-18.0); LYMPHOCYTES 34.9 % (24.0-44.0); MCH 29.4 pg (26.0-34.0); MCHC 32.8 g/dL (28.0-37.0); MCV 89.7 fL (80.0-100.0); MONOCYTES 8.4 % (1.0-8.0); PLATELET COUNT 287 thou/uL (150-400); POLYS 53.9 % (36.0-66.0); RBC 3.64 mil/uL (4.50-6.00); RDW 14.2 % (10.5-14.5)
[2019-12-09 06:39] LABS: CALCIUM 8.1 mg/dL (8.5-10.1); CREATININE 0.7 mg/dL (0.7-1.3); POTASSIUM 3.8 mmol/L (3.5-5.1)
[2019-12-09 08:13] VITALS: BP 173/79
--- NOTE | 2019-12-09 09:56 | NUR ---
on-going assessment: CM FAXED UPDATED CLINICAL AND PT NOTE TO [facility]. STILL AWAITING INSURANCE AUTH AT THIS TIME. CM WILL CONTINUE TO FOLLOW.
[2019-12-09 19:15] VITALS: BP 188/92
--- NOTE | 2019-12-09 20:25 | NUR ---
PT CARE ASSUMED AT 0700. A&Ox4. UP IN THE RECLINER MOST OF THE DAY. NO COMPLAINS OF PAIN. VITALS ARE STABLE. ACHS WITH SLIDIDNG SCALE. SLIDING SCALE CHANGED FROM LOW TO MODERATE AT DINNER TIME. SCD'S IN PLACE. URINAL. BM TODAY. NO COMPLAINS OF N/V. R.UPPER ARM PICC LINE. FLUSHES WELL AND DRAWS BACK. AWAITING INSURANCE AUTHORIZATION TO GO TO [place] FOR REHAB. FALL PROTOCOL IN PLACE. CALL LIGHT IN REACH. WILL CONTINUE TO MONITOR.
--- NOTE | 2019-12-10 04:05 | NUR ---
PT C/O PAIN ON HIS BACK,MANAGED WITH MED.URINAL AT BEDSIDE WITH GOOD OUTPUT.DRSG ON HIS BACK C/D/I.NO BM SO FAR THIS SHIFT.PT RESTING WELL ON HIS BED.PT ABLE TO REPOSITION SELF IN BED.PT LOOKING FORWARD TO BE DC'D LATER IN THE DAY.CALL LIGHT WITHIN REACH.
[2019-12-10 05:55] LABS: ABSOLUTE NEUTROPHILS 5.2 thou/uL (1.4-8.2); BASOPHILS 0.5 % (0.0-2.0); EOSINOPHILS 2.3 % (0.0-3.0); HEMATOCRIT 33.6 % (42.0-52.0); HEMOGLOBIN 11.1 gm/dL (14.0-18.0); LYMPHOCYTES 30.9 % (24.0-44.0); MCH 29.6 pg (26.0-34.0); MCHC 33.1 g/dL (28.0-37.0); MCV 89.3 fL (80.0-100.0); MONOCYTES 8.2 % (1.0-8.0); PLATELET COUNT 293 thou/uL (150-400); POLYS 58.1 % (36.0-66.0); RBC 3.76 mil/uL (4.50-6.00); RDW 14.5 % (10.5-14.5)
[2019-12-10 06:18] LABS: CALCIUM 8.5 mg/dL (8.5-10.1); CREATININE 0.9 mg/dL (0.7-1.3); POTASSIUM 3.5 mmol/L (3.5-5.1)
[2019-12-10 07:15] VITALS: BP 149/87
--- NOTE | 2019-12-10 09:20 | NUR ---
Assess due to dx pancreatitis. +etoh use. Lipase at 768. Diet slowly advancing. Tolerated some full liquids this am. Pt ready to try some solid foods, suggest low fat diet advance when appropriate. No significant wt changes. Low nutrition risk
--- NOTE | 2019-12-10 14:02 | NUR ---
ON-GOING ASSESSMENT: CM REVIEWED CHART AND SPOKE WITH LIASON FROM [facility] IN ATTEMPTS TO GET AN UPDATE ON AUTH. SHE REPORTS THEY ARE QUESTING ADDITIONAL INFORMATION SUCH H&P AND PT/OT. CM DISCUSSED THIS INFORMATION HAS ALREADY BEEN SENT. [facility] AGAIN FAXED H&P AND PRGORESS NOTES/MEDS/PT/OT ANY RECENT UPDATES TO [facility] IN ATTEMPTS TO GET INSURANCE AUTH FOR SNF. [facility] WILL CONTINUE TO FOLLOW TO ASSIST NEEDED.
[2019-12-10 16:04] VITALS: BP 153/77
--- NOTE | 2019-12-10 17:11 | NUR ---
PT IS AOX4, VSS, NO C/O PAIN. PICC IN RUE IS PATENT, IV FLUIDS ARE RUNNING. PT UP WITH 1 PERSON ASSIST TO BSC. NO BM THIS SHIFT. CONTINENT OF B&B, APPETITE FAIR. CALL LIGHT IN REACH, WILL CONTINUE TO MONITOR.
[2019-12-10 19:48] VITALS: BP 170/79
[2019-12-10 22:30] VITALS: BP 148/88
--- NOTE | 2019-12-10 23:37 | NUR ---
1900 ASSUMED CARE OF PT. 193 BASELINE ASSESSMENT COMPLETE, PT AWAKE ALERT AND ORIENTED C/O SLIGHT HEADACHE, NO OTHER COMPLAINTS AT THIS TIME, PT ABLE TO MOVE ALL 4 EXTREMITIES, WITH RADIAL AND PEDAL PULSES PALPABLE, SCDS IN PLACE, FALL PRECAUTIONS IN PLACE, PT USING URINAL AT BEDSIDE. WILL CONTINUE TO MONITOR
[2019-12-11 07:50] VITALS: BP 176/82
[2019-12-11 07:58] LABS: ABSOLUTE NEUTROPHILS 5.1 thou/uL (1.4-8.2); BASOPHILS 0.5 % (0.0-2.0); EOSINOPHILS 3.1 % (0.0-3.0); HEMATOCRIT 32.6 % (42.0-52.0); HEMOGLOBIN 10.9 gm/dL (14.0-18.0); LYMPHOCYTES 27.7 % (24.0-44.0); MCH 29.6 pg (26.0-34.0); MCHC 33.4 g/dL (28.0-37.0); MCV 88.7 fL (80.0-100.0); MONOCYTES 9.2 % (1.0-8.0); PLATELET COUNT 256 thou/uL (150-400); POLYS 59.5 % (36.0-66.0); RBC 3.67 mil/uL (4.50-6.00); RDW 14.3 % (10.5-14.5); WBC 8.5 thou/uL (4.0-11.0)
[2019-12-11 08:11] LABS: CALCIUM 8.6 mg/dL (8.5-10.1); CREATININE 0.7 mg/dL (0.7-1.3); POTASSIUM 3.7 mmol/L (3.5-5.1)
[2019-12-11 08:55] VITALS: BP 176/82
[2019-12-11] MEDS ORDERED: PEPCID20 MG PO (11:39)
[2019-12-11] MEDS ORDERED: ACCUPRIL40 MG PO (11:39)
[2019-12-11] MEDS ORDERED: LOPRESSOR50 PO (11:39)
[2019-12-11] MEDS ORDERED: COLACE 100 MG100 MG PO (11:39)
[2019-12-11] MEDS ORDERED: VALIUM5 MG PO (11:39)
[2019-12-11] MEDS ORDERED: FLOMAX0.4 MG PO (11:39)
[2019-12-11] MEDS ORDERED: ROBAXIN 750 MG750 MG PO (11:39)
[2019-12-11] MEDS ORDERED: PERCOCET 10-321 EACH PO (11:39)
[2019-12-11] MEDS ORDERED: VANCOMYCIN1.5 GM/15 IV (11:39)
[2019-12-11] MEDS ORDERED: IBUPROFEN 200200 M1 PO (11:39)
[2019-12-11] MEDS ORDERED: MILK OF MA2400 MG/11 PO (11:39)
--- NOTE | 2019-12-11 11:50 | NUR ---
ON-GOING ASSESSMENT: CM REVIEWED CHART AND SPOKE WITH PT. PT HAS ORDERS TO GO TO [facility] TODAY AND THEY HAVE RECEIVED INSURANCE AUTH. CM SPOKE WITH MARINO AT [facility] AND TRANSPROTATION IS ARRANGED FOR 1230. CM NOTIFIED BEDSIDE RN WELL PT. CM FAXED DISCHARGE PAPERWORK TO FACILITY AND CONFIRMED THEY RECEIVED IT. CHART COPY WAS ORDERED. BEDSIDE RN HAS THE NUMBER FOR REPORT. PT REPORTS HE NOTIFIED HIS FAMILY. PT REPORTS NO FURTHER NEEDS FROM CM PRIOR TO DISCHARGE.
--- NOTE | 2019-12-11 11:59 | NUR ---
Assumed care of pt at 0700. Pt a&ox4. Pain under control. Will change dressing before discharge. Pt will discharge to [place]. Up with SBA with walker and gait-belt. Call light within reach. Fall precautions in place.
== END 2019-12-11 13:02 | DRG 500 ==
LOC: ER 13:40 → EROBS 17:05 → 4S 17:05
PROVIDERS: Emergency Medicine; ADMIT Hospitalist; ATTEND Hospitalist
PROC: 0JD70ZZ Extraction of Back Subcutaneous Tissue and Fascia, Open Approach (ICD-10-PCS; principal; 2019-12-04)
PROC: 02HV33Z Insertion of Infusion Device into Superior Vena Cava, Percutaneous Approach (ICD-10-PCS; 2019-12-08)
DX: T84.63XA Infection and inflammatory reaction due to internal fixation device of spine, initial encounter (principal); E43 Unspecified severe protein-calorie malnutrition; G97.62 Postprocedural hematoma of a nervous system organ or structure following other procedure; K56.7 Ileus, unspecified; Z68.41 Body mass index [BMI] 40.0-44.9, adult; M54.89 Other dorsalgia; Y83.8 Other surgical procedures as the cause of abnormal reaction of the patient, or of later complication, without mention of misadventure at the time of the procedure; Z20.828 Contact with and (suspected) exposure to other viral communicable diseases; E11.9 Type 2 diabetes mellitus without complications; E78.5 Hyperlipidemia, unspecified; E66.9 Obesity, unspecified; K59.00 Constipation, unspecified; Z90.49 Acquired absence of other specified parts of digestive tract; Z79.4 Long term (current) use of insulin; Z87.442 Personal history of urinary calculi; Z88.6 Allergy status to analgesic agent; Z88.0 Allergy status to penicillin; Z88.2 Allergy status to sulfonamides; Z88.8 Allergy status to other drugs, medicaments and biological substances
CPT/HCPCS: 10102; 27000; 50010; 50101; 50445; 50850; 51878; 53078; 56525; 57006; 57092; 57103; 62110; 62900; 70005

== ENCOUNTER → 2019-12-21 | Outpatient (CLI) | payer OTHER ==
[~2019-12-21] MED LIST changes: +ACCUPRIL40 MG PO; +CINNAMON500 MG PO; +CLINDAMYCIN HC150 MG PO; +CLONIDINE HCL0.1 M1 PO; +COLACE 100 MG100 MG PO; +DIPHENHYDRAMINE25 M3 PO; +FLOMAX0.4 MG PO; +FLONASE 0.05%50 MCG NARES; +GABAPENTIN600 M1 PO; +GLIPIZIDE 10 MG10 MG PO; +HYDROCHLOROTH12.5 M1 PO; +IBU800 MG PO; +IBUPROFEN 200200 M1 PO; +LIPITOR 20 MG T20 M1 PO; +LOPRESSOR50 PO; +MILK OF MA2400 MG/11 PO; +PEPCID20 MG PO; +PERCOCET 10-321 EACH PO; +PRAVACHOL 20 MG20 M1 PO; +VALIUM5 MG PO; +VANCOMYCIN1.5 GM/15 IV; +ZESTRIL30 MG PO
== END ==
LOC: RAD 09:58
DX: M51.36 Other intervertebral disc degeneration, lumbar region (principal); M43.16 Spondylolisthesis, lumbar region; Z98.890 Other specified postprocedural states

== ENCOUNTER → 2020-01-13 | Outpatient (CLI) | payer OTHER | LOC: RAD 10:11 | DX: M47.816 Spondylosis without myelopathy or radiculopathy, lumbar region (principal); M41.86 Other forms of scoliosis, lumbar region ==

== ENCOUNTER → 2020-02-24 | Outpatient (CLI) | payer OTHER | LOC: RAD 09:56 | PROVIDERS: ATTEND Physician Assistant | DX: M41.86 Other forms of scoliosis, lumbar region (principal); Z98.890 Other specified postprocedural states ==